=== PATIENT | female | born 1995 | race Caucasian/White ===

== ENCOUNTER 2017-12-02 12:55 | Emergency (ER) | payer SELFPAY | END 2017-12-02 17:45 | disposition home or self-care (01) | LOC: D.ER 12:55 | DX: J11.1 Influenza due to unidentified influenza virus with other respiratory manifestations (principal); F17.200 Nicotine dependence, unspecified, uncomplicated ==

== ENCOUNTER 2020-01-13 07:51 | Emergency (ER) | payer MEDICAID ==
[~2020-01-13] VITALS: Ht 160 cm; Wt 55.5 kg
[2020-01-13 07:56] VITALS: Ht 160 cm; Wt 55.5 kg
[2020-01-13] MEDS ORDERED: HYDROCODON-ACE1 EAC2 PO (08:11)
[2020-01-13] MEDS ORDERED: CLINDAMYCIN HC300 MG PO (08:11)
[2020-01-13 08:42] VITALS: BP 112/68
== END 2020-01-13 08:42 | disposition home or self-care (01) ==
LOC: D.ER 07:51
DX: K08.89 Other specified disorders of teeth and supporting structures (principal); K02.9 Dental caries, unspecified; S02.5XXA Fracture of tooth (traumatic), initial encounter for closed fracture